=== PATIENT | female | born 2000 | race Two or more races ===

== ENCOUNTER 2022-07-24 15:27 | Emergency (ER) | payer OTHER ==
[~2022-07-24] VITALS: Ht 162.6 cm; Wt 61.2 kg
[2022-07-24] MEDS ORDERED: IBUP-1453 PO (20:13)
[2022-07-24] MEDS ORDERED: BACL10TA PO (20:13)
[2022-07-24 20:25] VITALS: BP 117/77
== END 2022-07-24 20:46 | disposition home or self-care (01) ==
LOC: ER 15:27
DX: S83.92XA Sprain of unspecified site of left knee, initial encounter (principal); S83.91XA Sprain of unspecified site of right knee, initial encounter; S43.402A Unspecified sprain of left shoulder joint, initial encounter; S13.9XXA Sprain of joints and ligaments of unspecified parts of neck, initial encounter; S43.401A Unspecified sprain of right shoulder joint, initial encounter; S20.219A Contusion of unspecified front wall of thorax, initial encounter; X58.XXXA Exposure to other specified factors, initial encounter; Y93.89 Activity, other specified; Y92.89 Other specified places as the place of occurrence of the external cause; Y99.8 Other external cause status
CPT/HCPCS: 71111; 72125; 73030; 73562; 81025